=== PATIENT | male | born 1945 | race Caucasian/White ===

== ENCOUNTER 2022-05-27 09:30 | Emergency (ER) | payer MEDICARE, OTHER ==
[~2022-05-27] VITALS: Ht 172.7 cm; Wt 91.4 kg
--- NOTE | 2022-05-27 09:43 | NUR ---
DR WALDEN AT BEDSIDE FOR EVALUATION.
[2022-05-27] MEDS ORDERED: ACETAMINOPHEN/CODEINE 300-30 MG TABLET PO ONE (09:45)
[2022-05-27] MEDS ORDERED: ACETAMINOPHEN/CODEINE 300-30 MG TABLET ONE (09:47)
--- NOTE | 2022-05-27 09:52 | NUR ---
MEDICATED FOR PAIN PER MD ORDER.
--- NOTE | 2022-05-27 10:27 | NUR ---
patient back from CT, resting comfortably in bed. Pain reassessed, reports mild pain relief after pain medication. stable.
--- NOTE | 2022-05-27 10:28 | NUR ---
EKG done, documented and EKG given to .
[2022-05-27] MEDS ORDERED: ACET1TAB23 PO (10:36)
--- NOTE | 2022-05-27 10:47 | NUR ---
Patient discharged to home in stable condition. Written and verbal after care instructions given. Patient verbalizes understanding of instructions. Stressed follow up or return to ER for worsening s/s.
--- NOTE | 2022-05-27 10:50 | NUR ---
TEST RESULTS REVIEWED BY MD WITH PATIENT. DISCHARGE INSTRUCTIONS RENDERED PER MD ORDER.
[2022-05-27 10:51] VITALS: BP 148/82
== END 2022-05-27 10:52 | disposition home or self-care (01) ==
LOC: ER 09:30
DX: S20.212A Contusion of left front wall of thorax, initial encounter (principal); W01.0XXA Fall on same level from slipping, tripping and stumbling without subsequent striking against object, initial encounter; Y92.480 Sidewalk as the place of occurrence of the external cause; G40.909 Epilepsy, unspecified, not intractable, without status epilepticus; E11.9 Type 2 diabetes mellitus without complications; M19.90 Unspecified osteoarthritis, unspecified site; N20.0 Calculus of kidney; M43.8X4 Other specified deforming dorsopathies, thoracic region
CPT/HCPCS: 71250; 73140; 93005; A4663

== ENCOUNTER 2025-02-28 22:25 | Emergency (ER) | payer MEDICARE, OTHER ==
[~2025-02-28] VITALS: Ht 208.3 cm; Wt 90.7 kg
[~2025-02-28 22:25] MED LIST: ACET1TAB23 PO
[2025-02-28] MEDS ORDERED: reglan (22:33)
[2025-02-28] MEDS ORDERED: plavix (22:33)
[2025-02-28] MEDS ORDERED: trileptal (22:33)
[2025-02-28] MEDS ORDERED: prilosec (22:33)
[2025-02-28] MEDS ORDERED: levETIRAcetam 500 MG/5 ML LIQUID UDC ONE (22:36)
[2025-02-28] MEDS ORDERED: levETIRAcetam 500 MG/5 ML VIAL IV ONE (22:37)
[2025-02-28] MEDS: levETIRAcetam IV 500 MG in IV DEXTROSE 5% 100 ML IV ONE (22:40)
[2025-02-28 22:46] LABS: BASOPHILS # (AUTO) 0.1 K/UL (0.0-0.2); BASOPHILS % (AUTO) 1.2 % (0.0-2.0); EOSINOPHILS # (AUTO) 0.2 K/uL (0.0-0.7); EOSINOPHILS % (AUTO) 2.5 % (0.0-7.0); HEMATOCRIT 42.7 % (36.7-47.1); HEMOGLOBIN 14.2 g/dL (12.5-16.3); LYMPHOCYTES # (AUTO) 2.4 K/uL (0.8-4.8); LYMPHOCYTES % (AUTO) 28.8 % (20.5-51.5); MEAN CORPUSCULAR HEMOGLOBIN 30.6 uug (23.8-33.4); MEAN CORPUSCULAR HGB CONC 33 g/dL (32.5-36.3); MEAN CORPUSCULAR VOLUME 91.9 fL (73.0-96.2); MONOCYTES # (AUTO) 0.8 K/uL (0.1-1.30); MONOCYTES % (AUTO) 9.3 % (0.0-11.0); NEUTROPHILS # (AUTO) 4.8 K/uL (1.8-8.9); NEUTROPHILS % (AUTO) 58.2 % (38.5-71.5); PLATELET COUNT (AUTO) 202 K/uL (152-348); RED BLOOD CELL COUNT(AUTO) 4.65 MIL/uL (4.06-5.63); RED CELL DISTRIBUTION WIDTH 14.1 % (12.1-16.2); WHITE BLOOD COUNT (AUTO) 8.2 K/uL (3.6-10.2)
[2025-02-28 22:48] LABS: DIFFERENTIAL COMMENT 1
[2025-02-28 22:53] LABS: CALCIUM 9.4 mg/dL (8.5-10.1); CARBON DIOXIDE 27 mmol/L (21-32); CHLORIDE 107 mmol/L (98-107); CREATININE 0.8 mg/dL (0.6-1.3); GLUCOSE 155 mg/dL (74-106); POTASSIUM 3.6 mmol/L (3.5-5.1); SODIUM SERUM 145 mmol/L (136-145); UREA NITROGEN, BLOOD 15 mg/dL (7-18)
[2025-03-01 01:21] VITALS: BP 150/68; TEMP 98; O2SAT 100
== END 2025-03-01 01:21 | disposition home or self-care (01) ==
LOC: ER 22:29
DX: G40.909 Epilepsy, unspecified, not intractable, without status epilepticus (principal); E11.9 Type 2 diabetes mellitus without complications; F41.9 Anxiety disorder, unspecified; R94.31 Abnormal electrocardiogram [ECG] [EKG]; Z88.5 Allergy status to narcotic agent; Z88.7 Allergy status to serum and vaccine
CPT/HCPCS: 99285; 96374; 70450; 80048; 85025; 36415; 93005; 80299; J1953 ×2; A4606; A4663